=== PATIENT | male | born 1975 | race American Indian/Alaskan Native ===

== ENCOUNTER 2016-06-30 10:53 | Outpatient (CLI) | payer MEDICAID ==
[2016-06-30 11:27] LABS: Albumin 4.4 g/dL (3.9-5); Anion Gap 17 mmol/L; BUN/Creatinine Ratio 11.25; Blood Urea Nitrogen 9 mg/dL (9-20); Calcium 9.5 mg/dL (8.4-10.2); Carbon Dioxide 27 mmol/L (22-30); Chloride 98.8 mmol/L (98-107); Glucose 96 mg/dL (75-100); Sodium 139 mmol/L (137-145)
--- NOTE | 2016-07-01 09:06 | Ultrasound Report ---
ULTRASOUND RENAL BILATERAL: HISTORY: Polycystic kidney disease, hematuria. TECHNIQUE: Transabdominal ultrasound with color Doppler interrogation. FINDINGS: Correlation is made with CT abdomen and pelvis with contrast dated 02/24/[address] abdomen and pelvis without contrast dated 01/24/16. The right kidney measures 11.5 x 6.0 x 6.4 cm. The left kidney measures 14.2 x 8.4 x 6.0 cm. There are numerous bilateral renal cysts. Approximately 10-12 cysts are appreciated in each kidney ranging from less than 1 cm up to 3 cm in diameter. Most of these cysts are simple Bosniak class I cysts. There are however a few cysts in both kidneys which demonstrate thin internal septa and thin-wall calcifications consistent with Bosniak class II and Bosniak class IIF cysts. There is no definite soft tissue renal mass with hypervascularity on color Doppler. The renal parenchyma is slightly echogenic bilaterally consistent with medical renal disease. Scattered calyceal stones are suspected in both kidneys but no evidence for hydronephrosis. No perinephric fluid. Images through the bladder are unremarkable. IMPRESSION: Multiple bilateral renal cysts consistent with Bosniak class I, class II, and class IIF lesions. There are no highly suspicious cystic renal masses; however, follow-up or surveillance with CT with contrast or MRI contrast is recommended in 6-12 months. Echogenic kidneys consistent with medical renal disease. Bilateral calyceal stones without hydronephrosis.
== END 2016-06-30 10:54 | disposition home or self-care (01) ==
LOC: US 10:53
PROVIDERS: ATTEND Internal Medicine Nephrology
DX: N18.1 Chronic kidney disease, stage 1 (principal); N28.1 Cyst of kidney, acquired; N20.0 Calculus of kidney; Q61.3 Polycystic kidney, unspecified; N28.89 Other specified disorders of kidney and ureter
CPT/HCPCS: 36415; 76770; 80048; 82040; 84100

== ENCOUNTER 2016-11-29 07:00 | Emergency (ER) | payer MEDICAID ==
[2016-11-29 07:25] VITALS: BP 136/93
[2016-11-29] MEDS ORDERED: ULTRAM PO ONE (09:21)
[2016-11-29] MEDS ORDERED: FLEXERIL PO ONE (09:29)
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
== END 2016-11-29 10:57 | disposition home or self-care (01) ==
LOC: ED 07:00
DX: S13.4XXA Sprain of ligaments of cervical spine, initial encounter (principal); V89.2XXA Person injured in unspecified motor-vehicle accident, traffic, initial encounter; Y93.89 Activity, other specified; Y99.9 Unspecified external cause status; Y92.410 Unspecified street and highway as the place of occurrence of the external cause
CPT/HCPCS: 72072; 72100

== ENCOUNTER 2016-11-30 12:48 | Outpatient (CLI) | payer MEDICAID ==
[2016-11-30 13:41] LABS: Albumin 4.4 g/dL (3.9-5); Anion Gap 18 mmol/L; BUN/Creatinine Ratio 11.25; Blood Urea Nitrogen 9 mg/dL (9-20); Calcium 9.5 mg/dL (8.4-10.2); Carbon Dioxide 24 mmol/L (22-30); Chloride 103.7 mmol/L (98-107); Glucose 94 mg/dL (75-100); Potassium 4.1 mmol/L (3.6-5.0); Sodium 142 mmol/L (137-145); Uric Acid 6.2 mg/dL (3.5-7.6)
== END 2016-11-30 12:49 | disposition home or self-care (01) ==
LOC: LAB 12:48
PROVIDERS: ATTEND Internal Medicine Nephrology
DX: N18.1 Chronic kidney disease, stage 1 (principal); N20.0 Calculus of kidney; Q61.3 Polycystic kidney, unspecified
CPT/HCPCS: 36415; 80048; 82040; 84100; 84550

== ENCOUNTER 2018-07-09 | Emergency (ER) | payer MEDICAID, MEDICARE, SELFPAY ==
[2018-07-09] MEDS ORDERED: TYLENOL PO ONE (00:51)
[2018-07-09] MEDS ORDERED: TYLENOL ONE (00:51)
[2018-07-09] MEDS ORDERED: CLEOCIN 600 MG/50 mL 600 MG/50 ML BAG IV ONE (06:42)
[2018-07-09 07:26] VITALS: BP 131/74
[2018-07-09 07:32] LABS: Basophils # (Auto) 0.1 K/mm3 (0.0-0.1); Basophils % (Auto) 0.9 % (0.0-1.8); Eosinophils # (Auto) 0.1 K/mm3 (0.0-0.4); Eosinophils % (Auto) 1.7 % (0.0-4.3); Hematocrit 40.6 % (35.5-45.6); Hemoglobin 13.5 gm/dl (11.8-15.2); Lymphocytes # (Auto) 2.2 K/mm3 (1.2-5.4); Lymphocytes % (Auto) 35.8 % (13.4-35.0); Mean Corpuscular HGB Conc 33 % (32-34); Mean Corpuscular Volume 85 fl (84-94); Monocytes # (Auto) 0.5 K/mm3 (0.0-0.8); Monocytes % (Auto) 8.1 % (0.0-7.3); Platelet Count 251 K/mm3 (140-440); Red Blood Count 4.78 M/mm3 (3.65-5.03); Red Cell Distribution Width 13.7 % (13.2-15.2)
[2018-07-09 07:33] LABS: Alanine Aminotransferase 17 units/L (7-56); Albumin 4.2 g/dL (3.9-5); BUN/Creatinine Ratio 18; Blood Urea Nitrogen 14 mg/dL (9-20); Calcium 9.3 mg/dL (8.4-10.2); Hemolysis Index 9
[2018-07-09 07:42] LABS: Bilirubin,Direct < 0.2 mg/dL (0-0.2)
[2018-07-09 07:49] LABS: INR 1.05 (0.87-1.13)
[2018-07-09 07:50] LABS: Partial Thromboplastin Time 34.8 Sec. (24.2-36.6)
--- NOTE | 2018-07-09 09:38 | Cat Scan Report ---
PROCEDURE: CT NECK W CON TECHNIQUE: CT of the neck performed. Intravenous contrast was administered. Axial images and coronal and sagittal reformatted images were obtained. HISTORY: dental infection, neck swelling COMPARISON: None FINDINGS: There are periapical lucencies involving ribs of right upper first and second molars. At the first m olar there is disruption of the overlying maxillary cortex. There is also a smaller periapical lucenc y involving the root of right lower first molar. 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 The left submandibular gland is slightly larger than the right. There is an 8-9 mm left submandibular stone. It may be minimally hyperemic as compared to the right side. I cannot confirm is significant degree of inflammatory change. Nevertheless, findings raise concern for very mild left submandibular sialoadenitis. Parotid glands are symmetric. There are nonenlarged lymph nodes in the neck bilaterally. There is no abnormal fluid collection seen . Thyroid gland is unremarkable. Airway is patent. Parapharyngeal tissue planes are maintained. IMPRESSION: There is multifocal on the right . Most notable findings involving the upper first molar on the right . No soft tissue abscess seen. There is also an 8-9 mm left submandibular stone with probable mild submandibular sialoadenitis. Naima elate clinically. This document is electronically signed by Jeanie Lee MD., July 09 2018 08:21:08 AM ET
--- NOTE | 2018-07-09 12:31 | Emergency Department Report ---
ED General Adult HPI - General Chief complaint: Dyspnea/Respdistress Stated complaint: JOSUE/LUMP IN THROAT Time Seen by Provider: 07/09/18 06:14 Source: patient, family Mode of arrival: Ambulatory Limitations: No Limitations - History of Present Illness Initial comments: 42-year-old male developed swelling of the submandibular region of his left neck. He states that his voice is usually a bit deeper but he has no dyspnea. He denies recent fever or chills. He doesn't that the problems with his dentition. He had no recent dental care. -: Gradual, days(s) Location: neck Radiation: non-radiation Severity scale (0 -10): 0 Quality: aching Consistency: intermittent Improves with: none Worsens with: none Associated Symptoms: denies other symptoms - Related Data Previous Rx's Medication Instructions Recorded Last Taken Type HYDROcodone/APAP 7.5-325 [[place] 1 each PO Q6HR PRN #20 tablet 04/25/15 Unknown Rx 7.5/325] traMADol [Ultram 50 MG tab] 50 mg PO Q6HR PRN #20 tablet 12/30/15 Unknown Rx Ondansetron [Zofran ODT TAB] 8 mg PO Q8HR #20 tab.rapdis 01/24/16 Unknown Rx oxyCODONE /ACETAMINOPHEN [Percocet 1 - 2 tab PO Q6HR PRN #14 tablet 01/24/16 Unknown Rx 5/325] Cyclobenzaprine [Flexeril] 10 mg PO TID PRN #15 tablet 11/29/16 Unknown Rx Ibuprofen [Motrin 600 MG tab] 600 mg PO Q8H PRN #30 tablet 11/29/16 Unknown Rx Clindamycin [Clindamycin CAP] 300 mg PO Q8H #30 cap 07/09/18 Unknown Rx HYDROcodone/ACETAMINOPHEN [[place] 1 each PO Q6H #7 tablet 07/09/18 Unknown Rx 5-325 Tablet] Allergies Allergy/AdvReac Type Severity Reaction Status Date / Time No Known Allergies Allergy Verified 07/09/18 02:33 ED Review of Systems ROS: Stated complaint: JOSUE/LUMP IN THROAT Other details as noted in HPI Constitutional: denies: chills, fever Eyes: denies: eye pain, eye discharge, vision change ENT: as per HPI. denies: ear pain, throat pain Respiratory: denies: cough, shortness of breath, wheezing Cardiovascular: denies: chest pain, palpitations Endocrine: no symptoms reported Gastrointestinal: denies: abdominal pain, nausea, diarrhea Genitourinary: denies: urgency, dysuria Musculoskeletal: denies: back pain, joint swelling, arthralgia Skin: denies: rash, lesions Neurological: denies: headache, weakness, paresthesias Psychiatric: denies: anxiety, depression Hematological/Lymphatic: denies: easy bleeding, easy bruising ED Past Medical Hx - Past Medical History Previous Medical History?: Yes Hx Hypertension: No Hx GERD: No Hx Renal Disease: Yes (Polycystic kidney dz; slightly low BUN/Cr) Hx Sickle Cell Disease: No Hx Seizures: No Hx Asthma: No Hx HIV: No Additional medical history: L eye glaucoma, L detached retina. 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 hernia surgery - Social History Smoking Status: Never Smoker Substance Use Type: None - Medications Home Medications: Home Medications Medication Instructions Recorded Confirmed Last Taken Type HYDROcodone/APAP 7.5-325 [[place] 1 each PO Q6HR PRN #20 tablet 04/25/15 01/24/16 Unknown Rx 7.5/325] traMADol [Ultram 50 MG tab] 50 mg PO Q6HR PRN #20 tablet 12/30/15 01/24/16 Unknown Rx Ondansetron [Zofran ODT TAB] 8 mg PO Q8HR #20 tab.rapdis 01/24/16 Unknown Rx oxyCODONE /ACETAMINOPHEN [Percocet 1 - 2 tab PO Q6HR PRN #14 tablet 01/24/16 Unknown Rx 5/325] Cyclobenzaprine [Flexeril] 10 mg PO TID PRN #15 tablet 11/29/16 Unknown Rx Ibuprofen [Motrin 600 MG tab] 600 mg PO Q8H PRN #30 tablet 11/29/16 Unknown Rx Clindamycin [Clindamycin CAP] 300 mg PO Q8H #30 cap 07/09/18 Unknown Rx HYDROcodone/ACETAMINOPHEN [[place] 1 each PO Q6H #7 tablet 07/09/18 Unknown Rx 5-325 Tablet] ED Physical Exam - General Limitations: No Limitations General appearance: alert, in no apparent distress - Head Head exam: Present: atraumatic, normocephalic - Eye Eye exam: Present: normal appearance, scleral icterus - ENT ENT exam: Present: normal orophraynx, mucous membranes moist, other (multiple carious teeth without apparent gingival abscess) - Neck Neck exam: Present: normal inspection, lymphadenopathy (moderately large and somewhat firm left submandibular node. Bilateral lymphadenopathy.) - Respiratory Respiratory exam: Present: normal lung sounds bilaterally. Absent: respiratory distress - Cardiovascular Cardiovascular Exam: Present: regular rate, normal rhythm. Absent: systolic murmur, diastolic murmur, rubs, gallop - GI/Abdominal GI/Abdominal exam: Present: soft, normal bowel sounds. Absent: distended, tenderness, guarding, rebound, rigid - Rectal Rectal exam: Present: deferred - Extremities Exam Extremities exam: Present: normal inspection - Back Exam Back exam: Present: normal inspection - Neurological Exam Neurological exam: Present: alert, oriented X3, CN II-XII intact. Absent: motor sensory deficit - Psychiatric Psychiatric exam: Present: normal affect, normal mood - Skin Skin exam: Present: warm, dry, intact, normal color. Absent: rash ED Course Vital Signs 07/09/18 07/09/18 07/09/18 00:07 00:45 00:52 Temperature 98.6 F 98.6 F Pulse Rate 81 80 Respiratory 20 20 18 Rate Blood Pressure 135/79 135/79 Blood Pressure [Left] O2 Sat by Pulse 97 97 Oximetry 07/09/18 07/09/18 07/09/18 01:52 04:30 05:01 Temperature 98.2 F Pulse Rate 54 L Respiratory 18 19 Rate Blood Pressure 119/71 Blood Pressure 141/75 [Left] O2 Sat by Pulse 98 97 Oximetry 07/09/18 07/09/18 07/09/18 05:05 05:07 05:09 Temperature Pulse Rate Respiratory Rate Blood Pressure 119/71 119/71 119/71 Blood Pressure [Left] O2 Sat by Pulse 96 98 95 Oximetry 07/09/18 07/09/18 07/09/18 05:11 05:13 05:15 Temperature Pulse Rate Respiratory Rate Blood Pressure 119/71 141/75 141/75 Blood Pressure [Left] O2 Sat by Pulse 98 99 100 Oximetry 07/09/18 07/09/18 07/09/18 05:17 05:19 05:21 Temperature Pulse Rate Respiratory Rate Blood Pressure 141/75 141/75 141/75 Blood Pressure [Left] O2 Sat by Pulse 100 98 98 Oximetry 07/09/18 07/09/18 07/09/18 05:23 05:25 05:27 Temperature Pulse Rate 45 L 44 L Respiratory 7 L 8 L Rate Blood Pressure 141/75 141/75 141/75 Blood Pressure [Left] O2 Sat by Pulse 100 100 100 Oximetry 07/09/18 07/09/18 07/09/18 05:29 05:31 05:33 Temperature Pulse Rate 45 L 45 L 45 L Respiratory 7 L 6 L 6 L Rate Blood Pressure 141/75 141/75 141/75 Blood Pressure [Left] O2 Sat by Pulse 100 100 100 Oximetry 07/09/18 07/09/18 07/09/18 05:35 05:37 05:39 Temperature Pulse Rate 44 L 54 L 47 L Respiratory 6 L 10 L 6 L Rate Blood Pressure 141/75 141/75 141/75 Blood Pressure [Left] O2 Sat by Pulse 100 100 100 Oximetry 07/09/18 07/09/18 07/09/18 05:41 05:43 06:00 Temperature Pulse Rate 49 L 49 L 48 L Respiratory 8 L 11 L 13 Rate Blood Pressure 141/75 119/71 117/66 Blood Pressure [Left] O2 Sat by Pulse 100 100 98 Oximetry 07/09/18 07:00 Temperature Pulse Rate 45 L Respiratory 9 L Rate Blood Pressure 131/74 Blood Pressure [Left] O2 Sat by Pulse 100 Oximetry - Reevaluation(s) Reevaluation #1: She was given intravenous antibiotics. His CT excluded a deep neck infection. He was appropriate for outpatient management and referral. 07/09/18 12:53 ED Medical Decision Making - Lab Data Result diagrams: 07/09/18 06:51 07/09/18 06:51 - Radiology Data Radiology results: report reviewed FINDINGS: There are periapical lucencies involving ribs of right upper first and second molars. At the first molar there is disruption of the overlying maxillary cortex. There is also a smaller periapical lucency involving the root of right lower first molar. 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 The left submandibular gland is slightly larger than the right. There is an 8-9 mm left submandibular stone. It may be minimally hyperemic as compared to the right side. I cannot confirm is significant degree of inflammatory change. Nevertheless, findings raise concern for very mild left submandibular sialoadenitis. Parotid glands are symmetric. There are nonenlarged lymph nodes in the neck bilaterally. There is no abnormal fluid collection seen. Thyroid gland is unremarkable. Airway is patent. Parapharyngeal tissue planes are maintained. IMPRESSION: There is multifocal on the right . Most notable findings involving the upper first molar on the right. No soft tissue abscess seen. There is also an 8-9 mm left submandibular stone with probable mild submandibular sialoadenitis. Correlate clinically. Critical care attestation.: If time is entered above; I have spent that time in minutes in the direct care of this critically ill patient, excluding procedure time. ED Disposition Clinical Impression: Dental infection, Cervical lymphadenopathy Disposition: TO HOME OR SELFCARE Is pt being admited?: No Does the pt Need Aspirin: No Condition: Stable Instructions: Dental Caries (ED), Lymphadenopathy (ED) Additional Instructions: Rx antibiotic and medication for pain. Further care with dentist is necessary. Also see referral for primary care. Return any acute change or problem. Prescriptions: Clindamycin [Clindamycin CAP] 300 mg PO Q8H #30 cap HYDROcodone/ACETAMINOPHEN [[place] 5-325 Tablet] 1 each PO Q6H #7 tablet Referrals: NIKA WELLS MD [Primary Care Provider] - 3-5 Days [facility] [Provider Group] - 3-5 Days Time of Disposition: 12:29
== END 2018-07-09 12:30 | disposition home or self-care (01) ==
LOC: ED
DX: R59.0 Localized enlarged lymph nodes (principal); K04.7 Periapical abscess without sinus; Z79.899 Other long term (current) drug therapy
CPT/HCPCS: 36415; 70491; 80048; 80076; 82140; 85025; 85610; 85730; 87040; 93005; 93010; 96365; 99284; Q9967